=== PATIENT | male | born 1995 | race Hispanic/Latino ===

== ENCOUNTER 2020-11-20 14:16 | Emergency (ER) | payer SELFPAY ==
[2020-11-20 15:14] LABS: Absolute Lymphocytes (CBC) 1.9 K/uL (0.7-4.9); Basophils % 0.4 % (0-1.3); Hematocrit 40.8 % (39.6-49.0); Lymphocytes % 32.5 % (15.3-44.8); MPV 7.7 fL (7.6-11.3); RBC Red Blood Cell Count 4.91 M/uL (4.33-5.43)
[2020-11-20] MEDS ORDERED: KETOROLAC 30 MG/ML INJ ONE (15:19)
[2020-11-20 15:31] LABS: Potassium 3.9 mmol/L (3.5-5.1); Uric Acid 9.5 mg/dL (3.5-7.2)
--- NOTE | 2020-11-20 16:05 | RAD REPORT ---
EXAM DESCRIPTION: RAD - Foot Right 3 View - 11/20/2020 3:55 pm CLINICAL HISTORY: PAIN COMPARISON: No comparisons FINDINGS: No bone or joint abnormality is detected.
--- NOTE | 2020-11-20 16:14 | ER ---
Nurse's Notes [facility] Name: Ar Mcdowell Age: 25 yrs Sex: Male : 1995 Arrival Date: 11/20/2020 Time: 14:18 Bed 11 Private MD: Diagnosis: Pain in right foot Presentation: 11/20 14:22 Chief complaint: Patient states: i have a very very bad pain in my RIGHT foot. it has tw2 been like this for a year now. every 4 or so months i have 2 or 3 weeks with nonstop pain \T\ swelling. this is about the 3rd time its happened. i have tried everything i can think of to get better. painful to put weight on it and the swelling is on the bottom. Coronavirus screen: At this time, the client does not indicate any symptoms associated with coronavirus-19. Ebola Screen: Patient denies travel to an Ebola-affected area in the 21 days before illness onset. Initial Sepsis Screen: Does the patient meet any 2 criteria? No. Patient's initial sepsis screen is negative. Does the patient have a suspected source of infection? No. Patient's initial sepsis screen is negative. Risk Assessment: Do you want to hurt yourself or someone else? Patient reports no desire to harm self or others. Onset of symptoms was November 20, 2020. 14:22 Method Of Arrival: Wheelchair tw2 14:22 Acuity: ABBIE 4 tw2 Triage Assessment: 14:24 General: Appears in no apparent distress. uncomfortable, obese, well groomed, Behavior tw2 is calm, cooperative, appropriate for age. Pain: Complains of pain in right foot. Historical: - Allergies: 14:25 PENICILLINS (Anaphylaxis, Respiratory distress); tw2 - Home Meds: 14:25 None [Active]; tw2 - PMHx: 14:25 None; tw2 - PSHx: 14:25 None; tw2 - Immunization history:: Client reports receiving the 2nd dose of the Covid vaccine. - Social history:: Smoking status: Patient denies any tobacco usage or history of. Screenin:41 Abuse screen: Denies threats or abuse. Denies injuries from another. Nutritional ld1 screening: No deficits noted. Tuberculosis screening: No symptoms or risk factors identified. Fall Risk None identified. Assessment: 14:41 General: Appears in no apparent distress. comfortable, Behavior is calm, cooperative, ld1 appropriate for age. General:. Pain: Complains of pain in right foot Pain does not radiate. Pain currently is 7 out of 10 on a pain scale. Quality of pain is described as pressure, squeezing, throbbing, Pain began 2-3 days ago. Is continuous. Neuro: Level of Consciousness is awake, alert, obeys commands, Oriented to person, place, time, situation. Cardiovascular: Capillary refill < 3 seconds Patient's skin is warm and dry. Cardiovascular:. Respiratory: Airway is patent Respiratory effort is even, unlabored, Respiratory pattern is regular, symmetrical. GI: Abdomen is round non-distended. : No signs and/or symptoms were reported regarding the genitourinary system. EENT: No signs and/or symptoms were reported regarding the EENT system. Derm: Musculoskeletal: Swelling present in right foot. Vital Signs: 14:22 BP 142 / 82; Pulse 66; Resp 17; Temp 97.6(TE); Pulse Ox 99% on R/A; Weight 131.54 kg tw2 (R); Height 5 ft. 7 in. (170.18 cm); Pain 8/10; 14:41 BP 136 / 78; Pulse 68; Resp 18; Pulse Ox 100% on R/A; Pain 7/10; ld1 14:22 Body Mass Index 45.42 (131.54 kg, 170.18 cm) tw2 ED Course: 14:18 Patient arrived in ED. ds1 14:24 Triage completed. tw2 14:24 Arm band placed on. tw2 14:37 Hong Kauffman PA is PHCP. [facility] 14:37 José Mack MD is Attending Physician. [facility] 14:41 Patient has correct armband on for positive identification. Bed in low position. Call ld1 light in reach. Side rails up X2. Pulse ox on. NIBP on. Door closed. Noise minimized. Warm blanket given. 14:41 No provider procedures requiring assistance completed. ld1 15:04 Uric Acid Sent. ld1 15:04 BMP Sent. ld1 15:04 CBC with Diff Sent. ld1 15:04 Inserted saline lock: 20 gauge in right antecubital area, using aseptic technique. ld1 Blood collected. 15:54 Iman Urena, RN is Primary Nurse. ld1 15:57 Foot Right 3 View XRAY In Process Unspecified. EDMS 16:32 IV discontinued, intact, bleeding controlled, No redness/swelling at site. ld1 Administered Medications: 15:04 Drug: Ketorolac 30 mg Route: IVP; Site: right antecubital; ld1 15:20 Follow up: Response: No adverse reaction ld1 Outcome: 16:13 Discharge ordered by MD. patrica 16:32 Discharged to home ambulatory. ld1 16:32 Condition: stable 16:32 Discharge instructions given to patient, Instructed on discharge instructions, follow up and referral plans. medication usage, Demonstrated understanding of instructions, follow-up care, medications, Prescriptions given X 1. 16:32 Patient left the ED. ld1 Signatures: Dispatcher [employer] EDMS Hong Kauffman PA PA jmm Sanford, Demi ds1 Yudith Ambrose RN RN tw2 Iman Urena, RN RN ld1
--- NOTE | 2020-11-20 16:14 | EDPHYS ---
Physician Documentation [facility] Name: Ar Mcdowell Age: 25 yrs Sex: Male : 1995 Arrival Date: 11/20/2020 Time: 14:18 Bed 11 Private MD: ED Physician José Mack HPI: 11/20 14:42 This 25 yrs old Male presents to ER via Wheelchair with complaints of Foot jmm Pain. 14:42 The patient presents with pain. Onset: The symptoms/episode began/occurred gradually, 2 jmm day(s) ago. Modifying factors: The symptoms are alleviated by nothing. the symptoms are aggravated by weight bearing. Is a 25-year-old male with no chronic medical conditions presents emerged from with complaints of right foot pain which began approximately 2 days ago. Patient has had a similar episode past. Patient denies any known injury. Denies fever. . Historical: - Allergies: 14:25 PENICILLINS (Anaphylaxis, Respiratory distress); tw2 - Home Meds: 14:25 None [Active]; tw2 - PMHx: 14:25 None; tw2 - PSHx: 14:25 None; tw2 - Immunization history:: Client reports receiving the 2nd dose of the Covid vaccine. - Social history:: Smoking status: Patient denies any tobacco usage or history of. ROS: 14:42 Constitutional: Negative for fever, chills, and weight loss, Cardiovascular: Negative jmm for chest pain, palpitations, and edema, Respiratory: Negative for shortness of breath, cough, wheezing, and pleuritic chest pain. 14:42 MS/extremity: Positive for pain. 14:42 All other systems are negative. Exam: 14:42 Constitutional: This is a well developed, well nourished patient who is awake, alert, jmm and in no acute distress. Head/Face: atraumatic. Eyes: EOMI, no conjunctival erythema appreciated ENT: Moist Mucus Membranes Neck: Trachea midline, Supple Chest/axilla: Normal chest wall appearance and motion. Cardiovascular: Regular rate and rhythm. No edema appreciated Respiratory: Normal respirations, no respiratory distress appreciated Abdomen/GI: Non distended, soft Back: Normal ROM Skin: General appearance color normal 14:42 Musculoskeletal/extremity: Swelling noted to the right foot, full dorsalis pulse appreciated, compartments are soft pain is mainly lateral and on the dorsal surface.. 14:42 Skin: Appearance: Color: normal in color. 14:42 Neuro: Orientation: is normal, Mentation: is normal, Memory: is normal. 14:42 Psych: Behavior/mood is pleasant, cooperative. Vital Signs: 14:22 BP 142 / 82; Pulse 66; Resp 17; Temp 97.6(TE); Pulse Ox 99% on R/A; Weight 131.54 kg tw2 (R); Height 5 ft. 7 in. (170.18 cm); Pain 8/10; 14:41 BP 136 / 78; Pulse 68; Resp 18; Pulse Ox 100% on R/A; Pain 7/10; ld1 14:22 Body Mass Index 45.42 (131.54 kg, 170.18 cm) tw2 MDM: 14:42 Patient medically screened. [facility] 16:12 Data reviewed: vital signs, nurses notes. Counseling: I had a detailed discussion with [facility] the patient and/or guardian regarding: the historical points, exam findings, and any diagnostic results supporting the discharge/admit diagnosis, lab results, radiology results, the need for outpatient follow up, to return to the emergency department if symptoms worsen or persist or if there are any questions or concerns that arise at home. ED course: Most likely has gout. Advised to follow-up with orthopedics/podiatry/rheumatology. I do not currently suspect an infectious process. Patient is afebrile, there is no elevation his white blood cell count. Patient is otherwise given strict return precautions. Patient understood and agrees plan of care.. 11/20 14:44 Order name: CBC with Diff; Complete Time: 15:20 [facility] 11/20 14:44 Order name: BMP; Complete Time: 15:35 [facility] 11/20 14:44 Order name: Uric Acid; Complete Time: 15:35 [facility] 11/20 14:44 Order name: Saline Lock; Complete Time: 15:04 [facility] 11/20 15:35 Order name: Foot Right 3 View XRAY; Complete Time: 16:11 [facility] Administered Medications: 15:04 Drug: Ketorolac 30 mg Route: IVP; Site: right antecubital; ld1 15:20 Follow up: Response: No adverse reaction ld1 Disposition: 23:45 Co-signature as Attending Physician, José Mack MD I agree with the assessment and kdr plan of care. Disposition Summary: 11/20/20 16:13 Discharge Ordered Location: Home [facility] Condition: Stable jmm Diagnosis - Pain in right foot jmm Followup: jmm - With: Private Physician - When: 2 - 3 days - Reason: Recheck today's complaints, Continuance of care, Re-evaluation by your physician Discharge Instructions: - Discharge Summary Sheet jm - Gout jm - Foot Pain [facility] Forms: - Medication Reconciliation Form [facility] - Thank You Letter [facility] - Antibiotic Education [facility] - Prescription Opioid Use [facility] Prescriptions: - indomethacin 50 mg Oral capsule - take 1 capsule by ORAL route 3 times per day with food; 20 capsule; Refills: 0, jm Product Selection Permitted Signatures: Dispatcher [employer] EDMS José Mack MD MD kdr Mickail, Joel, PA PA jmm Wise, Tara, RN RN tw2 Iman Urena RN RN ld1
[2020-11-20 16:49] VITALS: TEMP 97.6
[2020-11-20 16:51] VITALS: BP 136/78; O2SAT 100
== END 2020-11-20 16:32 | disposition home or self-care (01) ==
LOC: ER 14:16
DX: M79.671 Pain in right foot (principal); Z88.0 Allergy status to penicillin
CPT/HCPCS: 36415; 80048; 84550; 85025; 96374; 99284